=== PATIENT | female | born 1970 | race Caucasian/White ===

== ENCOUNTER 2023-02-02 06:50 | Emergency (ER) | payer OTHER, SELFPAY ==
[2023-02-02 06:51] VITALS: BP 159/92; PULSE 84; RESP 16; TEMP 38.1; O2SAT 97; BMI 33.5
--- NOTE | 2023-02-02 07:01 | EX.ED.DYSGE1 ---
HPI History of Present Illness Chief Complaint: General Illness PFSH PFS Home Medications amoxicillin 875 mg-potassium clavulanate 125 mg tablet 1 tab PO BID 7 days #14 tabs 02/02/23 [Rx Last Taken Unknown] Allergy/AdvReac Type Severity Reaction Status Date / Time No Known Allergies Allergy Verified 02/02/23 06:55 Social History Smoking Status: Never smoker EXAM Physical Exam Const Vital Signs: 02/02/23 06:51 02/02/23 06:55 Temperature 100.6 F H Temperature Source Oral Pulse Rate 84 Respiratory Rate 16 Respiratory Effort Normal Non-Labored Respiratory Pattern Normal Blood Pressure 159/92 H Blood Pressure Mean 114 Pulse Ox 97 Oxygen Delivery Method Room Air MDM MDM MDM Narrative Medical decision making narrative: HISTORY OF PRESENT ILLNESS: 52-year-old female here with 6 days of not feeling well. Notes headache that initially started. Now she changed her pillow and developed left-sided neck pain. She also notes chest pain for 2 days. This began 5 or 6 days ago. Denies any chest pain now. Denies any shortness of breath or cough. Does note increased urination. Denies any abdominal pain or vomiting. Notes sick contact and a coworker who had an unknown diagnosed GI illness. She denies any past medical history. Patient denies sudden onset or thunderclap headache, denies maximal intensity within 1 minute, vomiting, neck pain or stiffness, changes in vision, fever, history malignancy, syncope, seizures. Patient denies sudden onset of pain, no tearing sensation, no migratory symptoms, no new numbness, weakness or loss of sensation. Patient denies family history or personal history of Marfan syndrome or Walter-Danlos the patient denies recent surgery in the last 4 weeks or immobilization in the last 3 days, denies previous diagnosis of DVT or PE, hemoptysis, unilateral leg swelling or malignancy with treatment the last 6 months. No estrogen use noted. REVIEW OF SYSTEMS: Pertinent positives: Fever, chills Pertinent negatives: Syncope, focal numbness or weakness, visual loss PHYSICAL EXAM: Nursing triage notes reviewed, Vital signs reviewed Constitutional: please see mdm HENT: MMM Eyes: Pupils equal round and reactive to light, Extraocular muscles intact Neck: No stridor, no JVD, full neck ROM Lungs: Clear to auscultation, No wheezing or rales. No increased work of breathing, no conversational dyspnea, no accessory muscle use, no nasal flaring. No respiratory distress noted Heart: Regular rate and rhythm, No murmurs, No rubs and No gallops, 2+ distal pulses (radial, femoral, posterior tibial) in all extremities Abdomen: Soft, there is no tenderness, rigidity, rebound or guarding, no obvious peritoneal signs, no palpable pulsatile abdominal masses, no auscultated abdominal bruit : No CVAT Extremities: No edema Neuro: N alert and oriented x3, neuro exam at baseline, cranial nerves II through XII are intact. No pain with extraocular muscle movement. There is negative test of skew. Normal speech. 5 of 5 strength in upper and lower extremities in flexion extension. Intact sensation to light touch in upper and lower extremity dermatomes. No truncal or extremity ataxia. No dysdiadochokinesia. Normal gait. 2+ reflexes. No meningeal signs. Negative Babinski. NIH of 0 Skin: No rash or lesions noted MEDICAL DECISION MAKING: Chief Complaint: Fatigue, generalized illness, fevers and chills External records reviewed: No recent ED visits or hospitalizations Factors affecting care: none delete Social determinants of health: none History obtained from others: none Consults: none ALL IMAGES (IF OBTAINED) HAVE BEEN PERSONALLY REVIEWED AND INTERPRETED BY MYSELF. EKG with normal sinus rhythm, normal axis, normal intervals, no STEMI MDM Narrative: Patient was initially febrile otherwise nontoxic-appearing and hemodynamically stable with no focus of infection on exam I considered the following differential diagnosis: Viral illness, pericarditis, pneumonia, UTI, meningitis Patient had no focal neurologic deficits, she is not encephalopathic, she had no Kernig's and Brudzinski's sign, I discussed my low suspicion for meningitis. I offered further meningitis evaluation specifically lumbar puncture however patient refused at this time. She was alert and orient x3 and had capacity to make her own medical decisions and chose to forego LP at this time The patient's initial EKG had no signs of myocardial ischemia. There was no friction rub, diffuse ST elevation or MA depression to suggest pericarditis. Labs revealed no evidence of systemic inflammation, severe anemia, myocardial ischemia, UTI. Chest x-ray was remarkable for pneumonia. This is likely the etiology of the patient's complaints. She was given an oral antibiotic and given strict return precautions and follow-up instructions. The patient and/or family, caregivers express understanding. The patient and/or family, caregivers agrees with the plan. Total critical care time today provided was at least 0 minutes. This excludes separately billable procedures. Critical care time (if documented) is secondary to the patient having high probability of clinically significant/life threatening deterioration in the patient's condition which required my urgent intervention. Shared decision making: I will have a discussion with the patient and or visitors regarding risk/benefits of further testing or admission. They will be made aware of of the risk/benefits inherent in this decision they will be given the opportunity to voice understanding. Lab Data Attestation: I reviewed the patient's lab results. Radiography Chest X-Ray - ED: Read by ED Physician Diagnostic Testing: The patients chest x-ray was personally reviewed by myself shows evidence of left-sided infiltrate concerning for pneumonia Discharge Plan Triage Chief Complaint: General Illness ED Provider: Kenneth Torres Dx/Rx/DC Orders Clinical Impression: Pneumonia Instructions: ED Pneumonia (Adult) Prescriptions: New amoxicillin-pot clavulanate 875-125 mg tablet 1 tab PO BID 7 Days Qty: 14 0RF Primary Care Provider: Romel Argueta Referrals: Sanchez Duenas MD [STAFF PHYSICIAN] - Activity Restrictions/Additional Instructions: Thank you for trusting us with your care today! Please take Tylenol (2 pills, 650 mg), ibuprofen (2 pills, 400 mg) every 6 hours as needed for pain and fever control. Please take all antibiotics until course complete. Please return to the emergency department if your symptoms change or worsen. Specifically you develop chest pain, shortness of breath, lose consciousness, develop vomiting cannot take antibiotics by mouth. Please take Tylenol and ibuprofen every 6 hours for fever and pain control Please follow with your primary care physician for further outpatient evaluation and management. Disposition Disposition: Home, Self Care
--- NOTE | 2023-02-02 07:42 | EKG12_ITS ---
Test Reason : GENERAL/JAW PAIN Blood Pressure : / mmHG Vent. Rate : 095 BPM Atrial Rate : 095 BPM P-R Int : 124 ms QRS Dur : 072 ms QT Int : 332 ms P-R-T Axes : 022 052 021 degrees QTc Int : 417 ms Normal sinus rhythm Low voltage QRS Borderline ECG Confirmed by JOBY VITAL, AYLEEN ([id number]), film editor RON LARSON ([id number]) on 02/04/2023 10:10:51 AM Referred By: Confirmed By:AYLEEN HEMPHILL MD
--- NOTE | 2023-02-02 07:42 | RAD_ITS ---
STUDY: X-RAY CHEST REASON FOR EXAM: Female, 52 years old. Fever TECHNIQUE: PA and lateral views of the chest. COMPARISON: None. FINDINGS: Focal lingular infiltrate. There is no demonstrated pleural abnormality. Normal size heart. Normal mediastinum and na. Normal visualized pulmonary arteries. Normal visualized aortic arch and descending thoracic aorta. Normal visualized thoracic spine. Normal visualized ribs, clavicles, and shoulders. There is no demonstrated abnormality of the visualized soft tissue structures of the upper abdomen. RAD/Chest PA and Lateral IMPRESSION: Lingular infiltrate. Radiographic follow-up is recommended. Electronically Signed: Guero Scott MD at 8:55 EDT ,
[2023-02-02] MEDS: Acetaminophen 325 MG Tablet PO (08:26)
[2023-02-02] MEDS: Ketorolac 15 MG/ML Vial IV (08:27)
[2023-02-02] MEDS: Metoclopramide 10 MG/2 ML Vial 5 MG IV (08:27)
[2023-02-02 08:32] LABS: Absolute Lymphocyte Count 0.84 X10^3/uL (0.83-4.51); Absolute Neutrophil Count 6.4 X10^3/uL (2.0-7.7); Basophil# 0.03 X10^3/uL; Basophil% 0.4 % (0-1); Hematocrit 42.2 % (37-47); Lymphocyte # 0.84 X10^3/ul (0.83-4.51); Lymphocyte % 10.5 % (19-41); Mean Corp Hgb Conc 33.2 g/dL (32-36); Mean Corpuscular Hgb 30.6 pg (27.0-32.0); Mean Corpuscular Volume 92.3 fL (81-99); Monocyte# 0.67 X10^3/uL; Monocyte% 8.4 % (0-10); NRBC Flagged by Analyzer 0 % (0-5); Neutrophil # 6.43 X10^3/uL (2.7-7.7); Neutrophil % 80.2 % (47-70); Platelet Count 235 K/mm3 (150-450); RBC Distribution Width CV 12.6 % (11.6-14.6); RBC Distribution Width SD 42.3 fl (35.1-43.9); Red Blood Count 4.57 M/mm3 (4.2-5.4)
[2023-02-02 08:34] LABS: Color, Urine Yellow (Yellow); Glucose, Dipstick Normal (Normal); Ketone-Dipstick 5 mg/dl (Negative); Leukocyte Esterase-Dipstick 25 /ul (Negative); Nitrite-Dipstick Negative (Negative); Occult Blood-Urine 50 /ul (Negative); Protein-Dipstick 30 mg/dl (Negative); Urine Bilirubin Dipstick Negative (Negative); Urine Clarity Sl. Cloudy (Clear); Urine Urobilinogen 1 mg/dl (Normal)
[2023-02-02 08:43] LABS: Bacteria 1+ /hpf (None Seen); Mucous, Urine RARE /hpf (<or=2+); Red Blood Cells-Urine 0-5 SEEN /hpf (0-5); Renal Epithelial Cells 0-5 SEEN /hpf (0-5); Squamous Epithelial Cells - UA 5-10 SEEN /hpf (5-10); White Blood Cells 0-5 SEEN /hpf (0-5)
[2023-02-02 08:51] VITALS: RESP 18
[2023-02-02 08:55] LABS: Anion Gap 6 (5-15); BUN 8 mg/dL (7-18); BUN/Creat Ratio 8.1 RATIO (10-20); Calcium,Total 8.4 mg/dL (8.5-10.1); Chloride 103 mmol/L (98-107); Creatinine, Serum 0.98 mg/dL (0.55-1.02); EST Glomerular Filtration Rate 63 mL/min (>60); Est Glom Filt Rate - Afr Amer 77 mL/min (>60); Estimated Creatinine Clearance 58.65 ml/min; Glucose 138 mg/dL (74-106); Potassium 3.7 mmol/L (3.5-5.1); Sodium Level 133 mmol/L (136-145); Troponin-I HS < 3 pg/mL (3.0-54.0)
[2023-02-02] MEDS: Amox/Clavulanate 875 MG Tablet PO (10:05)
== END 2023-02-02 10:08 | disposition home or self-care (01) ==
PROVIDERS: Emergency Provider Emergency Medicine; PCP Student in an Organized Health Care Education/Training Program; Visit Provider Emergency Medicine
DX: J18.9 Pneumonia, unspecified organism (principal)
CPT/HCPCS: 71046; 80048; 81001; 84484; 85025; 87428; 93005; 96361; 96374; 96375; 99285; J7030; A4216

== ENCOUNTER 2023-12-24 16:07 | Emergency (ER) | payer OTHER, SELFPAY ==
[2023-12-24] VITALS (8 sets, daily range): BP systolic 117–136; BP diastolic 71–83; PULSE 71–88; RESP 16–18; TEMP 36.2–36.8; O2SAT 94–99; BMI 32.6
--- NOTE | 2023-12-24 16:21 | EDS_ITS ---
HPI HPI - GI History of Present Illness Chief Complaint: Abd Pain Informant: patient Abdominal Pain/Flank Pain Onset: Days (2) Context: Gradual Onset Timing: Continuous Quality: Aching Location: Epigastric and - (Periumbilical) Worsened by: Food Relieved by: Nothing Nausea/Vomiting/Emesis GI Symptom: Positive for Nausea and Vomiting Quality: Negative for Blood streaks, Coffee ground or Hematemesis Diarrhea/Melena/Hematochezia GI Symptom: Positive for Diarrhea and Melena Associated Symptoms Associated Symptoms: Negative for Dysuria, Frequency or Hematuria Narrative Narrative: Patient presents with abdominal pain that has been getting worse over the past 2 days. Patient states the pain is over the periumbilical and epigastric area. Patient describes the pain as aching. Patient states it has been constant. Patient states that it is worse after eating. Patient admits to some nausea and vomiting. Patient denies any hematemesis or coffee-ground emesis. Patient admits to some diarrhea. Patient states it is black. Patient states she has been using Pepto-Bismol. Patient states that she has also been under a lot of stress with her mother dying recently. PFSH PFSH Medical History no medical history no medical history Home Medications ?Medication ?Instructions ?Recorded ?Last Taken ?Type omeprazole 20 mg capsule,delayed 20 mg PO DAILY #30 CAPSULES 12/24/23 Unknown Rx release sucralfate 1 gram tablet (Carafate) 1 g PO BID #20 tabs 12/24/23 Unknown Rx Allergy/AdvReac Type Severity Reaction Status Date / Time No Known Allergies Allergy Verified 12/24/23 16:08 Surgical History (Updated 12/24/23 @ 17:[address] Steve Ortiz DO) History of hysterectomy Social History Smoking Status: Never smoker ROS ROS ED Constitutional Constitutional ED: Reports fever(s) and subjective; Denies chills Eyes Eyes: Denies blurry vision or change in vision ENT ENT ED: Denies rhinorrhea or sore throat Cardiovascular Cardiovascular: Reports chest pain; Denies palpitations Respiratory/Chest Respiratory/Chest: Reports cough; Denies dyspnea Gastrointestinal Gastrointestinal: Reports abdominal pain, diarrhea, melena, nausea and vomiting Genitourinary Genitourinary ED: Denies dysuria or hematuria Musculoskeletal Musculoskeletal: Denies back pain or neck pain Integumentary Denies abscess or rash Neurologic Neurologic: Reports weakness; Denies headache(s) Allergic/Immunologic Allergic/Immunologic ED: Denies mouth swelling or urticaria EXAM Physical Exam Const Vital Signs: 12/24/23 16:08 12/24/23 16:11 12/24/23 17:11 Temperature 97.4 F L 97.4 F L 98.2 F Temperature Source Temporal Temporal Oral Pulse Rate 88 88 75 Respiratory Rate 18 18 16 Blood Pressure 125/83 H 125/83 H 129/82 H Blood Pressure Mean 97 97 97 Pulse Ox 98 98 99 Oxygen Delivery Method Room Air Room Air Room Air 12/24/23 18:00 12/24/23 19:45 12/24/23 20:00 Temperature 98.3 F Temperature Source Oral Pulse Rate 78 Respiratory Rate 16 Blood Pressure 136/77 H 124/79 H 121/73 H Blood Pressure Mean 96 93 88 Pulse Ox 99 99 97 Oxygen Delivery Method Room Air 12/24/23 21:00 Temperature Temperature Source Pulse Rate Respiratory Rate Blood Pressure Blood Pressure Mean Pulse Ox 98 Oxygen Delivery Method Positive well nourished and well developed General Appearance ED: well developed and NAD HEENT Reports moist mucous membranes Neck supple and no JVD Resp normal respiratory effort and clear to auscultation bilaterally Cardio regular rate and regular rhythm GI non-distended Palpation: soft and tender epigastric and periumbilical; Negative for guarding or rebound tenderness present Extremity normal to inspection General Extremety ED: Negative for edema or tenderness General Extremity: Negative for edema Neuro oriented x3, CN's II-XII intact bilaterally and no sensory deficits noted Sensorium / Orientation: alert Motor Exam: strength 5/5 throughout Psych mental status grossly normal MDM MDM MDM Narrative Medical decision making narrative: Differential diagnosis includes gastritis, peptic ulcer disease, duodenal ulcer, pancreatitis, bowel obstruction, perforation, urinary tract infection, and pyelonephritis. CBC will be obtained to assess for leukocytosis and anemia. Comprehensive metabolic profile will be obtained to assess for electrolyte abnormality and renal function. Lipase will be obtained to assess for pancreatitis. Urinalysis will be obtained to assess for urinary tract infection and hematuria. CT scan of the abdomen and pelvis will be obtained to assess for bowel obstruction, perforation, and pancreatitis. Lab Data Attestation: I reviewed the patient's lab results. Lab results narrative: CBC was reviewed and was within normal limits. Comprehensive metabolic profile was reviewed and was within normal limits. Lipase was reviewed and was normal. Urinalysis was reviewed. There is no evidence of urinary tract infection or hematuria. Labs: Laboratory Results - last 24 hr 12/24/23 12/24/23 17:15 17:25 WBC 5.3 RBC 4.62 Hgb 13.8 Hct 42.0 MCV 90.9 MCH 29.9 MCHC 32.9 RDW Std Deviation 41.1 RDW Coeff of Zaida 12.5 Plt Count 224 MPV 8.4 Immature Gran % (Auto) 0.400 Neut % (Auto) 68.7 Lymph % (Auto) 23.7 [place] % (Auto) 6.4 Eos % (Auto) 0.4 Baso % (Auto) 0.4 Absolute Neuts (auto) 3.7 Absolute Lymphs (auto) 1.26 Nucleated RBC % 0 Sodium 136 Potassium 3.6 Chloride 105 Carbon Dioxide 25.0 Anion Gap 6 BUN 8 Creatinine 0.83 Estim Creat Clear Calc 84.32 Est GFR (MDRD) Af Amer 92 Est GFR (MDRD) Non-Af 76 BUN/Creatinine Ratio 9.6 L Glucose 102 Calcium 8.6 Total Bilirubin 0.30 AST 34 ALT 47 Alkaline Phosphatase 61 Total Protein 7.5 Albumin 3.3 Globulin 4.2 Albumin/Globulin Ratio 0.8 L Lipase 26 Urine Color Yellow Urine Clarity Clear Urine pH 5.0 Ur Specific [place] 1.020 Urine Protein 15 H Urine Glucose (UA) Normal Urine Ketones Negative Urine Occult Blood 10 H Urine Nitrite Negative Urine Bilirubin Negative Urine Urobilinogen Normal Ur Leukocyte Esterase Negative Urine RBC 0 SEEN Urine WBC 0 SEEN Ur Squamous Epith Cells 5-10 SEEN Urine Bacteria 0 SEEN Urine Mucus 0 SEEN Radiography Diagnostic Testing: Clinical Impression(s) from Imaging Studies Abdomen/Pelvis CT 12/24/23 17:11 IMPRESSION: Gallbladder wall edema without calcified gallstones. Recommend correlation with gallbladder ultrasound for possible acute cholecystitis. Electronically Signed: Gilles Milian MD at 20:01 EDT , Gallbladder Ultrasound 12/24/23 20:30 IMPRESSION: 1. Hepatomegaly and fatty infiltration of the liver. 2. Gallbladder sludge. No secondary signs of acute cholecystitis. 3. The pancreas is obscured by bowel gas. Electronically Signed: Miky YazminHolger Heart DO at 21:53 EDT , CT scan of the abdomen pelvis was obtained. There is gallbladder wall edema without gallstones. Correlation with gallbladder ultrasound for possible acute cholecystitis is recommended. There is no other acute abnormality. This was interpreted by the radiologist and was also independently reviewed by myself. Right upper quadrant ultrasound was obtained. There is hepatomegaly and fatty infiltration of the liver. There is gallbladder sludge but no signs of acute cholecystitis. This was interpreted by the radiologist and was also independently reviewed by myself. Treatment and Re-Evaluation :: Patient was given IV fluids, morphine, and Zofran. Patient was feeling better on reevaluation. Patient was advised of her findings. Patient was advised that this could be gastritis or peptic ulcer disease. Patient was given a prescription for omeprazole. Patient was also given a prescription for Carafate. Patient was instructed to follow-up with her primary care physician in 3 to 5 days. Patient was instructed to return if worse in any way. Patient understood and was agreeable with the plan. All questions were answered. Discharge Plan Triage Chief Complaint: Abd Pain Other Complaint: Nausea/Vomiting/Diarrhea ED Provider: Steve Ortiz Dx/Rx/DC Orders Clinical Impression: Epigastric abdominal pain Instructions: ED Epigastric Pain Uncertain Cause Prescriptions: New omeprazole 20 mg capsule,delayed release(DR/EC) 20 mg PO DAILY Qty: 30 0RF sucralfate [Carafate] 1 gram tablet 1 g PO BID Qty: 20 0RF Primary Care Provider: Romel Argueta Referrals: Romel Argueta DO [Primary Care Provider] - 5-7 Days Print Language: Belarusian
--- NOTE | 2023-12-24 17:11 | CT_ITS ---
INDICATION: Periumbilical abdominal pain with nausea, vomiting and diarrhea for 2 days EXAMINATION: CT ABDOMEN AND PELVIS WITH CONTRAST - CT Abdomen And Pelvis W/ Contrast Injection TECHNIQUE: Helically acquired images were obtained of the abdomen and pelvis following IV contrast. A radiation dose optimization technique was used for this scan. IV Contrast dosage and agent: 100 cc [id number] Oral contrast: Yes. COMPARISON: None. FINDINGS: LOWER CHEST: Lung bases are clear. No cardiomegaly or pericardial effusion. LIVER: Subcentimeter cyst or hemangioma right lobe inferiorly. No concerning focal mass. GALLBLADDER AND BILIARY TREE: No calcified gallstones. No abnormal gallbladder distention. Mild gallbladder wall edema and pericholecystic stranding. No intra- or extrahepatic biliary ductal dilation. PANCREAS: No focal cystic or solid mass. SPLEEN: Normal size without focal cystic or solid mass. ADRENAL GLANDS: No nodules. KIDNEYS AND URETERS: Normal renal size and position. No hydronephrosis. PERITONEUM: No ascites or free air. BOWEL: Normal appendix. No stomach or bowel distension. No focal inflammatory change. LYMPH NODES: No enlarged mesenteric or retroperitoneal lymph nodes. VESSELS: Aorta is non-dilated. URINARY BLADDER: Unremarkable. REPRODUCTIVE ORGANS: Uterus absent. ABDOMINAL WALL: No discrete abdominal or pelvic wall hernia. BONES: No acute or aggressive abnormality. CT/Abdomen/Pelvis WITH Contrast IMPRESSION: Gallbladder wall edema without calcified gallstones. Recommend correlation with gallbladder ultrasound for possible acute cholecystitis. Electronically Signed: Gilles Milian MD at 20:01 EDT ,
[2023-12-24] MEDS: Morphine 4 MG/ML Syringe IV (17:28)
[2023-12-24] MEDS: 0.9% Normal Saline (1000mL) 1,000 ML 999 ML IV (17:28)
[2023-12-24] MEDS: Ondansetron 4 MG/2 ML Vial IV (17:28)
[2023-12-24 17:32] LABS: Absolute Lymphocyte Count 1.26 X10^3/uL (0.83-4.51); Absolute Neutrophil Count 3.7 X10^3/uL (2.0-7.7); Basophil# 0.02 X10^3/uL; Basophil% 0.4 % (0-1); Eosinophil# 0.02 X10^3/uL; Eosinophils% 0.4 % (0-5); Hemoglobin 13.8 g/dL (12.0-15.0); Lymphocyte # 1.26 X10^3/ul (0.83-4.51); Lymphocyte % 23.7 % (19-41); Mean Corp Hgb Conc 32.9 g/dL (32-36); Mean Corpuscular Hgb 29.9 pg (27.0-32.0); Mean Corpuscular Volume 90.9 fL (81-99); Mean Platelet Vol. 8.4 fl (6.2-12.0); Monocyte# 0.34 X10^3/uL; Monocyte% 6.4 % (0-10); NRBC Flagged by Analyzer 0 % (0-5); Neutrophil # 3.66 X10^3/uL (2.7-7.7); Neutrophil % 68.7 % (47-70); Platelet Count 224 K/mm3 (150-450); RBC Distribution Width CV 12.5 % (11.6-14.6); RBC Distribution Width SD 41.1 fl (35.1-43.9); Red Blood Count 4.62 M/mm3 (4.2-5.4); White Blood Count 5.3 K/mm3 (4.4-11.0)
[2023-12-24 17:36] LABS: Bacteria 0 SEEN /hpf (None Seen); Mucous, Urine 0 SEEN /hpf (<or=2+); Red Blood Cells-Urine 0 SEEN /hpf (0-5); White Blood Cells 0 SEEN /hpf (0-5)
[2023-12-24 17:44] LABS: Color, Urine Yellow (Yellow); Glucose, Dipstick Normal (Normal); Ketone-Dipstick Negative (Negative); Leukocyte Esterase-Dipstick Negative /ul (Negative); Nitrite-Dipstick Negative (Negative); Occult Blood-Urine 10 /ul (Negative); Protein-Dipstick 15 mg/dl (Negative); Urine Bilirubin Dipstick Negative (Negative); Urine Clarity Clear (Clear); Urine Urobilinogen Normal (Normal)
[2023-12-24 17:50] LABS: ALB/GLOB Ratio 0.8 RATIO (0.9-2.4); AST(SGOT) 34 U/L (15-37); Alanine Aminotransfer ALT/SGPT 47 U/L (13-56); Albumin, Serum 3.3 g/dL (3.2-5.0); Alkaline Phosphatase 61 U/L (45-117); Anion Gap 6 (5-15); BUN 8 mg/dL (7-18); BUN/Creat Ratio 9.6 RATIO (10-20); Calcium,Total 8.6 mg/dL (8.5-10.1); Chloride 105 mmol/L (98-107); Creatinine, Serum 0.83 mg/dL (0.55-1.02); EST Glomerular Filtration Rate 76 mL/min (>60); Est Glom Filt Rate - Afr Amer 92 mL/min (>60); Estimated Creatinine Clearance 84.32 ml/min; Globulin 4.2 g/dL (2.2-4.2); Glucose 102 mg/dL (74-106); Lipase 26 U/L (13-75); Potassium 3.6 mmol/L (3.5-5.1); Protein, Total 7.5 g/dL (6.4-8.2); Sodium Level 136 mmol/L (136-145)
[2023-12-24 18:36] LABS: Squamous Epithelial Cells - UA 5-10 SEEN /hpf (5-10)
--- NOTE | 2023-12-24 20:30 | US_ITS ---
EXAM: US ABDOMEN LIMITED, GALLBLADDER CLINICAL INDICATION: PAIN TECHNIQUE: Real-time ultrasound of the right upper quadrant with image documentation. COMPARISON: No relevant prior studies available. FINDINGS: LIVER: The liver is enlarged measuring 18.3 cm and diffusely echogenic suggesting fatty infiltration. GALLBLADDER: Minimal gallbladder sludge. No distinct stones. Negative sonographic Swain sign. No gallbladder wall thickening is demonstrated. No pericholecystic fluid. COMMON BILE DUCT: Normal as visualized. The proximal common bile duct is within normal limits for the patient''s age. PANCREAS: The pancreas is obscured by bowel gas. US/Gallbladder IMPRESSION: 1. Hepatomegaly and fatty infiltration of the liver. 2. Gallbladder sludge. No secondary signs of acute cholecystitis. 3. The pancreas is obscured by bowel gas. Electronically Signed: Miky Heart DO at 21:53 EDT ,
== END 2023-12-24 22:47 | disposition home or self-care (01) ==
LOC: ED 16:31
PROVIDERS: Emergency Provider Emergency Medicine; PCP Student in an Organized Health Care Education/Training Program; Visit Provider Emergency Medicine
DX: R10.13 Epigastric pain (principal); R11.2 Nausea with vomiting, unspecified
CPT/HCPCS: 96361; 96374; 96375; 74177; 76705; 80053; 81001; 83690; 85025; 99283; J7030; Q9967; A4216; J2405

== ENCOUNTER 2024-12-10 11:36 | Emergency (ER) | payer OTHER, SELFPAY ==
[2024-12-10 11:37] VITALS: BP 123/57; PULSE 66; RESP 16; TEMP 37; O2SAT 100
--- NOTE | 2024-12-10 11:53 | CT_ITS ---
EXAM: CT Abdomen and Pelvis Without Intravenous Contrast CLINICAL INDICATION: R GROIN PAIN TECHNIQUE: Axial computed tomography images of the abdomen and pelvis without intravenous contrast. This CT exam was performed using one or more of the following dose reduction techniques: automated exposure control, adjustment of the mA and/or kV according to patient size, and/or use of iterative reconstruction technique. COMPARISON: CT Abdomen Pelvis dated 11/27/2023 FINDINGS: LUNG BASES: Unremarkable. No mass. No consolidation. MEDIASTINUM: Small esophageal hiatal hernia. ABDOMEN: LIVER: Hepatomegaly with fatty infiltration. GALLBLADDER AND BILE DUCTS: Unremarkable. No calcified stones. No ductal dilation. PANCREAS: Unremarkable. No ductal dilation. SPLEEN: Unremarkable. No splenomegaly. ADRENALS: Unremarkable. No mass. KIDNEYS AND URETERS: Punctate left nephrolithiasis without hydronephrosis. STOMACH AND BOWEL: Fecal retention in the colon consistent with constipation. No obstruction. No mucosal thickening. PELVIS: APPENDIX: No findings to suggest acute appendicitis. BLADDER: Unremarkable. No stones. REPRODUCTIVE: Unremarkable as visualized. ABDOMEN and PELVIS: INTRAPERITONEAL SPACE: Unremarkable. No free air. No significant fluid collection. BONES/JOINTS: No acute fracture. No dislocation. SOFT TISSUES: Unremarkable. VASCULATURE: Unremarkable. No abdominal aortic aneurysm. LYMPH NODES: Unremarkable. No enlarged lymph nodes. CT/Abdomen/Pelvis without Cont IMPRESSION: 1. Small esophageal hiatal hernia. 2. Hepatomegaly with fatty infiltration. 3. Punctate left nephrolithiasis without hydronephrosis. 4. Fecal retention in the colon consistent with constipation. Reading Location: [id number]
--- NOTE | 2024-12-10 12:06 | EDS_ITS ---
HPI <GRACIELA Patel - Last Filed: 12/10/24 21:20> History of Present Illness Chief Complaint: Lower Extremity Injury Narrative Narrative: Patient presenting today with pain to the right groin she has had over the past 4 weeks. She reports that she cannot get into see her PCP soon and was talking to her friend who is a nurse who recommended she come in to be evaluated. She reports that she wanted to make sure that she did not have a kidney stone that could be stuck. She initially had pain to the right lower back, the back pain has improved and now she reports that the pain is located to her right groin and radiates down the medial aspect of her right thigh. It is worse when standing up from a sitting position, range of motion of the right hip, and with walking. She has been taking ibuprofen with adequate relief of her pain. She denies any injury to the area, she has no history of kidney stones, she denies urinary symptoms and abdominal pain. PFSH <GRACIELA Patel - Last Filed: 12/10/24 21:20> [facility] Home Medications ?Medication ?Instructions ?Recorded ?Last Taken ?Type omeprazole 20 mg capsule,delayed 20 mg PO DAILY #30 CA PSULES 12/24/23 Unknown Rx release sucralfate 1 gram tablet (Carafate) 1 g PO BID #20 tab s 12/24/23 Unknown Rx gabapentin 300 mg capsule 300 mg PO QHS 10 days #10 ca ps 12/10/24 Unknown Rx Allergy/AdvReac Type Severity Reaction Status Date / Time No Known Allergies Allergy Verified 12/10/24 12:44 Family History no significant family his Surgical History History of hysterectomy Social History (Updated 12/10/24 @ 12:20 by Niesha Sullivan) current occupational status: employed Smoking Status: Never smoker ROS <GRACIELA Patel - Last Filed: 12/10/24 21:20> ROS ED Constitutional Constitutional ED: Denies chills or fever(s) Cardiovascular Cardiovascular: Denies chest pain Respiratory/Chest Respiratory/Chest: Denies dyspnea Gastrointestinal Gastrointestinal: Denies abdominal pain, nausea or vomiting Genitourinary Genitourinary ED: Denies dysuria, hematuria or urinary urgency Musculoskeletal Musculoskeletal: Reports back pain and other Details: R groin pain Integumentary Denies rash Neurologic Neurologic: Denies paresthesias EXAM <GRACIELA Patel - Last Filed: 12/10/24 21:20> Physical Exam Const Vital Signs: 12/10/24 11:37 12/10/24 13:40 Temperature 98.6 F 98.2 F Temperature Source Temporal Pulse Rate 66 68 Respiratory Rate 16 16 Blood Pressure 123/57 H 134/78 H Blood Pressure Mean 79 96 Pulse Ox 100 99 Oxygen Delivery Method Room Air Positive well nourished, well developed and no apparent distress General Appearance ED: well developed HEENT Reports normocephalic and head/scalp atraumatic Mouth ED: Yes moist mucous membranes normal Eyes PERRL and EOMs intact bilaterally Neck full ROM and supple Chest Wall inspection of chest normal Resp normal respiratory effort and clear to auscultation bilaterally Cardio regular rate and regular rhythm GI soft to palpation, non-tender, non-distended and no masses Back/Spine normal ROM and normal to inspection Extremity normal to inspection and full ROM Extremity Narrative: Pain to the right groin with logroll on the right as well as with adduction of the right hip. Right DP pulse 2+, good cap refill, sensation intact. No obvious mass or lesions to the right groin. No obvious hernia. Neuro oriented x3, CN's II-XII intact bilaterally, moves all extremities, no focal motor deficits and no sensory deficits noted Sensorium / Orientation: awake and alert Psych mental status grossly normal and thought process normal Skin no rashes or lesions noted and no wounds <Dr. Charan Valle DO - Last Filed: 12/10/24 22:05> Physical Exam Const Vital Signs: 12/10/24 11:37 12/10/24 13:40 Temperature 98.6 F 98.2 F Temperature Source Temporal Pulse Rate 66 68 Respiratory Rate 16 16 Blood Pressure 123/57 H 134/78 H Blood Pressure Mean 79 96 Pulse Ox 100 99 Oxygen Delivery Method Room Air MDM <GRACIELA Patel - Last Filed: 12/10/24 21:20> [facility] MDM Narrative Medical decision making narrative: Patient presents today with pain to her right groin she has had over the last month or so. The pain initially started in the right lower back pain, now she reports that the pain in her back has improved. The pain in her groin does radiate down the medial aspect of her thigh down to her knee. She has been seeing her chiropractor with minimal relief. She is still able to ambulate without difficulty. She cannot get into see her doctor for a few more weeks and her friend who is a nurse recommended she be seen to rule out a kidney stone. She does have reproducible tenderness to the right groin with adduction of the right hip and logrolling. No obvious hernia on exam, no skin changes. She is neurovascularly intact to her right lower extremity. No midline back tenderness. She did have recent travel to [place], therefore a venous duplex ultrasound obtained to assess for DVT and is negative. CT of the abdomen and pelvis obtained to assess for hernia, pelvic fracture, kidney stone, and to assess her lumbar spine. This shows left nephrolithiasis, constipation, and some degeneration of the spine. Suspect her symptoms are more related to lumbar radiculopathy. I will give her a prescription for gabapentin to use at night as needed. Recommend she follow-up with her PCP and she will be discharged home in stable condition. Radiography Diagnostic Testing: Clinical Impression(s) from Imaging Studies Abdomen/Pelvis CT 12/10/24 11:53 IMPRESSION: 1. Small esophageal hiatal hernia. 2. Hepatomegaly with fatty infiltration. 3. Punctate left nephrolithiasis without hydronephrosis. 4. Fecal retention in the colon consistent with constipation. Reading Location: [facility] <Dr. Charan Valle, DO - Last Filed: 12/10/24 22:05> MDM Radiography Diagnostic Testing: Clinical Impression(s) from Imaging Studies Abdomen/Pelvis CT 12/10/24 11:53 IMPRESSION: 1. Small esophageal hiatal hernia. 2. Hepatomegaly with fatty infiltration. 3. Punctate left nephrolithiasis without hydronephrosis. 4. Fecal retention in the colon consistent with constipation. Reading Location: [facility] Treatment and Re-Evaluation Narrative: Attending note: I have personally performed a face to face assessment of the patient and have reviewed the KWAME note. I personally made/approved the management plan and take responsibility for the patient management. I performed a substantive portion of the visit including all aspects of the following. My antonio findings include: Intermittent right groin pain for last month. Did have some back pain. Pain radiates inside of her thigh. Did have previous pain down to her great toe. She follows with chiropractor regularly had adjustments that improved the pain in her foot. Groin pain has continued. No history of DVTs. No chest pains or shortness of breath. Exam mild right lumbar tender straight leg test with -2+ patellar reflex. No calf tenderness. Minimal tenderness medial thigh. Pulses intact distally. Soft compartments. DVT study obtained which was negative. CT abdomen pelvis obtained mild degenerative changes of the lumbar spine there is no hernias no kidney stones. Discussed concerns for lumbar radiculopathy pain radiating to the groin. Discussed starting her on gabapentin for which she agrees. Prescription sent to pharmacy. Outpatient follow-up. Discharge Plan Triage Chief Complaint: Lower Extremity Injury ED Midlevel Provider: Yesi Magallanes ED Provider: Charan Valle Dx/Rx/DC Orders Clinical Impression: Lumbar radiculopathy, right Instructions: Understanding Lumbar Radiculopathy, ED Groin Strain Prescriptions: New gabapentin 300 mg capsule 300 mg PO QHS 10 Days Qty: 10 0RF No Action omeprazole 20 mg capsule,delayed release(DR/EC) 20 mg PO DAILY Qty: 30 0RF sucralfate [Carafate] 1 gram tablet 1 g PO BID Qty: 20 0RF Primary Care Provider: Romel Argueta Referrals: Romel Argueta DO [Primary Care Provider] - 5-7 Days Activity Restrictions/Additional Instructions: Follow-up with your PCP, you can also take Tylenol and ibuprofen for pain. Return for any other concerns. Print Language: Ethiopian Disposition Disposition: Home, Self Care Discharge Date/Time: 12/10/24 13:42
--- NOTE | 2024-12-10 12:29 | VDLE_ITS ---
Reason For Study Reason For Study: RLE PAIN RIGHT GSV is normal. CFV is compressible, spontaneous, phasic, competent and demonstrates normal augmentation. FV is compressible, spontaneous, phasic, competent and demonstrates normal augmentation. POP V is compressible, spontaneous, phasic, competent and demonstrates normal augmentation. T/P Trunk is compressible. PTV is compressible. RT PerV is compressible. Procedure This is a venous duplex using B-mode, color flow and spectral Doppler. Exam performed portable in ED. A preliminary report was called and/or faxed to Mickie RN &ED @ 12:45 pm. VL/Venous Duplex US, Unilateral Interpretation Summary Deep veins of the right lower extremity are patent and compressible segmentally . There is no evidence of right lower extremity deep vein thrombosis. The right great saphenous vein appears patent a nd compressible segmentally. Ordering Physician: Yesi Magallanes Referring Physician: Romel Argueta Performed By: Rachelle Fay, ARIADNE, RVT
[2024-12-10 13:40] VITALS: BP 134/78; PULSE 68; RESP 16; TEMP 36.8; O2SAT 99
== END 2024-12-10 13:42 | disposition home or self-care (01) ==
PROVIDERS: Emergency Provider Emergency Medicine; PCP Student in an Organized Health Care Education/Training Program; Visit Provider Emergency Medicine
DX: M54.16 Radiculopathy, lumbar region (principal); R10.31 Right lower quadrant pain; N20.0 Calculus of kidney; Z90.710 Acquired absence of both cervix and uterus
CPT/HCPCS: 74176; 93971; 99282

== ENCOUNTER 2025-02-21 08:30 | Outpatient (RCR) | payer OTHER, SELFPAY ==
--- NOTE | 2025-01-02 12:07 | HP.PTEVAL ---
Patient's Visit Information Visit Information Visit Information: LIYA CHAIREZ is a 54 year old F referred to Physical Therapy by Dr. Romel Argueta DO with a diagnosis of Lumbar DDD. Date of Evaluation: 01/02/25 Physical Therapist: RADHA Long Visit Plan Frequency: 2x /Week Duration: 2 Months Plan: 2X/ week for 8 weeks for R hip flexor stretch, R hip IR/ER stretching, core and hip strength with HEP and gait mechanics HEP: Del stretch with strap, Prone hip IR/ER, and Bridges Subjective Subjective: R Hip x-ray says some R anterior spurring. The X-ray of the Lumbar spine mild L4/L5 and L4/S1.... when going from sit to stand she would have aching pain down the Quads and she noticed a pain where the kidney would be and never got checked out. If she goes to spread her leg she will get Quad bone pain and when goes to stand up she has anterior hip pain. She lays on her side and gets some R hip adductor pain and if lays on the R side she will get pain up in the outside of her hip. Getting out of a car she would feel her hip was out of socket. She is taking sciatica pro plus supplement and that has helped her. She has trouble going down steps. Pain R hip pain: Pain Intensity (Out of 10): 0 back pain: Pain Intensity (Out of 10): 0 Objective Objective: Gait: Pt walks with decrease stance time on the R LE and decreased stride length LE MMT R hip flex 17.1 and L 18.4 R hip abd 7.5 and L 10.9 R hip ext 6.8 and L 8.7 Pt is able to heel and toe raise Pt has very tight R hip flexor Pt has very limited R hip IR/ER with increase pain at end range. Pt is not able to cross R ankle over the L knee in supine due to decrease hip ROM Balance/Special Test Scores Oswestry Low Back Score: 6 Goals Goal 1:: I HEP Goal Time Frame: 6-8 Weeks Goal 2:: Increase R hip IR/ER AROM to be able to cross R ankle over L knee in supine Goal Time Frame: 6-8 Weeks Goal 3:: Be able to walk with longer strides and not have R hip pain Goal Time Frame: 6-8 Weeks Goal 4:: Be able to stretch hip flexor without pain and less pain with sit to stand Rehabilitation Potential Rehabilitation Potential: Good Anticipated Interventions Patient/Client Instruction: Educate patient on: Condition and Plan of Care For the Purpose of:: To decrease pain, To increase ROM, To improve nutrient delivery to tissue, To improve muscle performance and motor function, To improve ability to perform ADL's, To increase tolerance to activity/condition/position, To improve performance and independence with ADL's, To improve ability of physical actions for home/community/work/leisure, To improve gait and locomotor functions, To improve health of tissue, To decrease soft tissue restriction and To increase flexibility/ROM Therapeutic Exercise to Include: Strength training, Body mechanics, Postural training, Flexibilty training, Gait and locomotor training, Neuromotor development, Active ROM and Dynamic Lumbar Stabilization For the Purpose of:: To decrease pain, To increase ROM, To improve nutrient delivery to tissue, To improve muscle performance and motor function, To improve ability to perform ADL's, To increase tolerance to activity/condition/position, To improve performance and independence with ADL's, To decrease level of supervision to perform tasks, To improve ability of physical actions for home/community/work/leisure, To improve gait and locomotor functions, To improve health of tissue, To decrease soft tissue restriction and To increase flexibility/ROM Functional Training to Include: Gait training For the Purpose of:: To improve gait and locomotor functions and To improve safety with gait Manual Therapy Techniques to Include: Mobilization, Passive ROM and Soft tissue mobilization For the Purpose of:: To decrease pain, To increase ROM, To improve nutrient delivery to tissue, To improve muscle performance and motor function, To improve ability to perform ADL's, To increase tolerance to activity/condition/position, To improve gait and locomotor functions, To improve health of tissue, To decrease soft tissue restriction and To increase flexibility/ROM Text: Thank you for the opportunity to evaluate your patient. For Medicare and Medicare HMO plans, please review the plan of care and approve it. It will need to be FAXED BACK to us at [phone] for Medicare purposes. For Medicare only, by signing this I certify the plan of care. Please let me know if there are questions or concerns regarding this plan of care. Physician Signature: Date:
--- NOTE | 2025-02-21 08:58 | HP.PTDCSUM ---
Discharge Summary D/C summary: It has been my pleasure to treat LIYA CHAIREZ referred by Dr. Romel Argutea DO, with the diagnosis of Lumbar DDD for a total of 10 visit(s). Discharge Date: 02/21/25 Please see the following information for a summary of their discharge status. Subjective Subjective: Pt brought in MRI's and has hip labral tear and multiple bulging discs in L-spine. Pt will now make some appts to see Ortho Dr and some pain management. She does feel that she is gaining ROM. We discussed that she can do her stretching at home until they decide what to do with her hip. Pt is still having hip and back pain when she sleeps. Pain R hip pain: Pain Intensity (Out of 10): 0 back pain: Pain Intensity (Out of 10): 0 Overall Improvement % Improvement: 30 Objective Objective/Function: Copied from 02/08 note: Patient has made progress with ROM /strength hip and appears patient pain is more related to labral tear Gait: reciprocal pattern slight antalgic LE MMT R hip flex 36. R hip abd 22.5 R hip ext 15.8 PROM:hip flexion ~ 100 degrees ,IR 20 ,ER 20 degrees slight painfull and weak Goals Goal 1:: I HEP Goal Progress: Goal Met Goal 2:: Increase R hip IR/ER AROM to be able to cross R ankle over L knee in supine Goal Progress: Progressing Goal 3:: Be able to walk with longer strides and not have R hip pain Goal Progress: Progressing Goal 4:: Be able to stretch hip flexor without pain and less pain with sit to stand Goal Progress: Progressing Plan Plan: DC PT to HEP and back to Dr D/C Information Discharge Comments: DC PT to HEP and back to Dr to review MRI and next steps d/c sentence: If there are questions or concerns regarding this patient's physical therapy, please feel free to call me at [phone]. Thank you for the referral of this patient. Sincerely, Margaret Goss, MPT Balance/Gait/Functional tests Balance/Special Test Scores Oswestry Low Back Score: 6 Lower Extremity Functional Score: 64 Improvement % Improvement: 30
== END 2025-02-21 19:00 | disposition home or self-care (01) ==
LOC: PT 08:30
PROVIDERS: PCP Student in an Organized Health Care Education/Training Program; Referring Provider Student in an Organized Health Care Education/Training Program; Visit Provider Student in an Organized Health Care Education/Training Program
DX: M51.369 Other intervertebral disc degeneration, lumbar region without mention of lumbar back pain or lower extremity pain (principal)
CPT/HCPCS: 97110; 97140; 97162; 97530